=== PATIENT | male | born 1995 | race Caucasian/White ===

== ENCOUNTER 2018-11-18 20:48 | Emergency (ER) | payer OTHER ==
[2018-11-18] MEDS ORDERED: NS 0.9% 1000 ML** 1,000 ML IV ONE (21:44)
[2018-11-18 22:27] LABS: ABS Lymphocytes 1.2 10^3/ul (1.0-4.8); ABS Monocytes 0.4 10^3/ul (0-0.8); ABS Neutrophils 6.5 10^3/ul (1.5-7.7); Eosinophil % 0.1 %; Hematocrit 43 % (42-52); Hemoglobin 15.1 g/dL (14.0-18.0); Lymphocyte % 14.8 %; Mean Corpuscular HGB Conc 35 g/dL (31-36); Mean Corpuscular Hemoglobin 29 pg (27-31); Mean Corpuscular Volume 84 fL (80-94); Mean Platelet Volume 8.5 fL (7.4-10.4); Platelet Count 187 10^3/uL (150-450); Red Cell Distribution Width 14 % (10-15); White Blood Count 8.1 10^3/uL (3.5-10.8)
[2018-11-18 22:43] LABS: Albumin 5.1 g/dL (3.2-5.2); Albumin/Globulin Ratio 1.8 (1-3); BUN/Creatinine Ratio 11.7 (8-20); C Reactive Protein 17.66 mg/L (<8.01); EGFR African American 119.3 (>60); EGFR Non-African American 98.6 (>60); Globulin 2.9 g/dL (2-4); Total Bilirubin 0.8 mg/dL (0.2-1.0)
[2018-11-19] MEDS ORDERED: Potassium Chlor TAB* 20 MEQ TAB.ER PO ONE (00:16)
[2018-11-19 00:48] LABS: Magnesium 1.6 mg/dL (1.9-2.7)
[2018-11-19] MEDS ORDERED: Magnesium Sulfate 2 GM IV* 2 GM/50 ML BAG IVPB ONE (00:51)
[2018-11-19 00:52] LABS: Urine Appearance Clear; Urine Bilirubin Negative (Negative); Urine Blood Negative (Negative); Urine Color Straw; Urine Glucose Negative (Negative); Urine Ketones Negative (Negative); Urine Nitrite Negative (Negative); Urine Protein Negative (Negative); Urine Specific Gravity 1.005 (1.010-1.030); Urine Urobilinogen Negative (Negative)
--- NOTE | 2018-11-19 01:27 | ED ---
Complex/Multi-Sys Presentation - HPI Summary HPI Summary: Patient complains of headache, chills, sinus pain, numbness and tingling in all extremities starting today. Patient was sent from urgent care to the ED for further evaluation. Fever of 100.5 at urgent care which resolved with 400 mg ibuprofen. Headache also resolved with ibuprofen. Denies trauma, cough, sore throat, nasal discharge, ear pain, neck stiffness, CP, SOB, N/V/D, abdominal pain, change in urine, change in BM. Medical history is occasional headache. - History Of Current Complaint Chief Complaint: EDFever Time Seen by Provider: 11/18/18 21:28 Hx Obtained From: Patient Onset/Duration: Sudden Onset Timing: Intermittent, Lasting: Severity Currently: Mild Severity Initially: Mild Character: Typical Headache Associated Signs And Symptoms: Positive: Headache, Fever - Allergies/Home Medications Allergies/Adverse Reactions: Allergies Allergy/AdvReac Type Severity Reaction Status Date / Time No Known Allergies Allergy Verified 11/18/18 21:07 Home Medications: Home Medications Fluticasone NASAL SPRAY 50MCG* [Flonase NASAL SPRAY 50MCG*] 2 spray BOTH NARES DAILY 11/18/18 [History Confirmed 11/18/18] PMH/Surg Hx/FS Hx/Imm Hx Endocrine/Hematology History: Denies: Hx Anticoagulant Therapy Cardiovascular History: Denies: Hx Pacemaker/ICD History: Denies: Hx Dialysis Sensory History: Denies: Hx Eye Prosthesis Opthamlomology History: Denies: Hx Legally Blind EENT History: Denies: Hx Deafness Neurological History: Denies: Hx Dementia Psychiatric History: Denies: Hx Autism Infectious Disease History: No Infectious Disease History: Denies: Traveled Outside the [place] in Last 30 Days - Family History Known Family History: Positive: Non-Contributory - Social History Alcohol Use: Occasionally Substance Use Type: Reports: None Smoking Status (MU): Never Smoked Tobacco Review of Systems Positive: Fever Eyes: Negative ENT: Negative Cardiovascular: Negative Respiratory: Negative Gastrointestinal: Negative Genitourinary: Negative Musculoskeletal: Negative Skin: Negative Positive: Headache, Paresthesia Psychological: Normal All Other Systems Reviewed And Are Negative: Yes Physical Exam - Summary Physical Exam Summary: Neuro exam normal. ENT exam unremarkable. No active symptoms at this time. Triage Information Reviewed: Yes Vital Signs On Initial Exam: Initial Vitals Temp Pulse Resp BP Pulse Ox 99.3 F 103 16 129/93 97 11/18/18 21:05 11/18/18 21:05 11/18/18 21:05 11/18/18 21:05 11/18/18 21:05 Vital Signs Reviewed: Yes Appearance: Positive: Well-Appearing Skin: Positive: Warm Head/Face: Positive: Normal Head/Face Inspection Eyes: Positive: Normal ENT: Positive: Normal ENT inspection Neck: Positive: Supple Respiratory/Lung Sounds: Positive: Clear to Auscultation Cardiovascular: Positive: Normal Abdomen Description: Positive: Nontender Musculoskeletal: Positive: Normal Neurological: Positive: Normal Psychiatric: Positive: Normal AVPU Assessment: Alert - [place] Coma Scale Best Eye Response: 4 - Spontaneous Best Motor Response: 6 - Obeys Commands Best Verbal Response: 5 - Oriented Coma Scale Total: 15 Diagnostics - Vital Signs Vital Signs Temp Pulse Resp BP Pulse Ox 11/19/18 00:12 91 16 136/80 100 11/19/18 00:00 96 16 98 11/18/18 23:45 88 16 99 11/18/18 23:42 88 19 140/79 99 11/18/18 23:39 91 14 135/76 100 11/18/18 23:13 88 15 132/80 99 11/18/18 23:00 95 16 100 11/18/18 22:42 86 19 137/81 100 11/18/18 22:14 88 18 133/84 99 11/18/18 22:01 91 17 92 11/18/18 21:43 93 16 130/78 100 11/18/18 21:40 94 20 100 11/18/18 21:05 99.3 F 103 16 129/93 97 - Laboratory Lab Results: Lab Results 11/18/18 11/18/18 11/18/18 Range/Units 22:14 22:14 22:14 WBC 8.1 (3.5-10.8) 10^3/uL RBC 5.20 (4.18-5.48) 10^6 /uL Hgb 15.1 (14.0-18.0) g/dL Hct 43 (42-52) % MCV 84 (80-94) fL MCH 29 (27-31) pg MCHC 35 (31-36) g/dL RDW 14 (10-15) % Plt Count 187 (150-450) 10^3/uL MPV 8.5 (7.4-10.4) fL Neut % (Auto) 79.7 % Lymph % (Auto) 14.8 % Bland % (Auto) 5.0 % Eos % (Auto) 0.1 % Baso % (Auto) 0.4 % Absolute Neuts (auto) 6.5 (1.5-7.7) 10^3/ul Absolute Lymphs (auto) 1.2 (1.0-4.8) 10^3/ul Absolute Monos (auto) 0.4 (0-0.8) 10^3/ul Absolute Eos (auto) 0.0 (0-0.6) 10^3/ul Absolute Basos (auto) 0.0 (0-0.2) 10^3/ul Absolute Nucleated RBC 0.0 10^3/ul Nucleated RBC % 0.0 Sodium 136 (135-145) mmol/L Potassium 3.0 L (3.5-5.0) mmol/L Chloride 101 (101-111) mmol/L Carbon Dioxide 24 (22-32) mmol/L Anion Gap 11 (2-11) mmol/L BUN 11 (6-24) mg/dL Creatinine 0.94 (0.67-1.17) mg/dL Est GFR ( Amer) 119.3 (>60) Est GFR (Non-Af Amer) 98.6 (>60) BUN/Creatinine Ratio 11.7 (8-20) Glucose 99 (70-100) mg/dL Lactic Acid 1.5 (0.5-2.0) mmol/L Calcium 10.0 (8.6-10.3) mg/dL Magnesium 1.6 L (1.9-2.7) mg/dL Total Bilirubin 0.80 (0.2-1.0) mg/dL AST 23 (13-39) U/L ALT 33 (7-52) U/L Alkaline Phosphatase 73 (34-104) U/L C-Reactive Protein 17.66 H (<8.01) mg/L Total Protein 8.0 (6.4-8.9) g/dL Albumin 5.1 (3.2-5.2) g/dL Globulin 2.9 (2-4) g/dL Albumin/Globulin Ratio 1.8 (1-3) Urine Color Urine Appearance Urine pH (5-9) Ur Specific [place] (1.010-1.030) Urine Protein (Negative) Urine Ketones (Negative) Urine Blood (Negative) Urine Nitrate (Negative) Urine Bilirubin (Negative) Urine Urobilinogen (Negative) Ur Leukocyte Esterase (Negative) Urine Glucose (Negative) 11/19/18 Range/Units 00:00 WBC (3.5-10.8) 10^3/uL RBC (4.18-5.48) 10^6 /uL Hgb (14.0-18.0) g/dL Hct (42-52) % MCV (80-94) fL MCH (27-31) pg MCHC (31-36) g/dL RDW (10-15) % Plt Count (150-450) 10^3/uL MPV (7.4-10.4) fL Neut % (Auto) % Lymph % (Auto) % Bland % (Auto) % Eos % (Auto) % Baso % (Auto) % Absolute Neuts (auto) (1.5-7.7) 10^3/ul Absolute Lymphs (auto) (1.0-4.8) 10^3/ul Absolute Monos (auto) (0-0.8) 10^3/ul Absolute Eos (auto) (0-0.6) 10^3/ul Absolute Basos (auto) (0-0.2) 10^3/ul Absolute Nucleated RBC 10^3/ul Nucleated RBC % Sodium (135-145) mmol/L Potassium (3.5-5.0) mmol/L Chloride (101-111) mmol/L Carbon Dioxide (22-32) mmol/L Anion Gap (2-11) mmol/L BUN (6-24) mg/dL Creatinine (0.67-1.17) mg/dL Est GFR ( Amer) (>60) Est GFR (Non-Af Amer) (>60) BUN/Creatinine Ratio (8-20) Glucose (70-100) mg/dL Lactic Acid (0.5-2.0) mmol/L Calcium (8.6-10.3) mg/dL Magnesium (1.9-2.7) mg/dL Total Bilirubin (0.2-1.0) mg/dL AST (13-39) U/L ALT (7-52) U/L Alkaline Phosphatase (34-104) U/L C-Reactive Protein (<8.01) mg/L Total Protein (6.4-8.9) g/dL Albumin (3.2-5.2) g/dL Globulin (2-4) g/dL Albumin/Globulin Ratio (1-3) Urine Color Straw Urine Appearance Clear Urine pH 8.0 (5-9) Ur Specific [place] 1.005 L (1.010-1.030) Urine Protein Negative (Negative) Urine Ketones Negative (Negative) Urine Blood Negative (Negative) Urine Nitrate Negative (Negative) Urine Bilirubin Negative (Negative) Urine Urobilinogen Negative (Negative) Ur Leukocyte Esterase Negative (Negative) Urine Glucose Negative (Negative) Result Diagrams: 11/18/18 22:14 11/18/18 22:14 Lab Statement: Any lab studies that have been ordered have been reviewed, and results considered in the medical decision making process. Complex Multi-Symp Course/Dx Course Of Treatment: Patient complains of headache, chills, sinus pain, numbness and tingling in all extremities starting today. Patient was sent from urgent care to the ED for further evaluation. Fever of 100.5 at urgent care which resolved with 400 mg ibuprofen. Headache also resolved with ibuprofen. Denies trauma, cough, sore throat, nasal discharge, ear pain, neck stiffness, CP , SOB, N/V/D, abdominal pain, change in urine, change in BM. Medical history is occasional headache. Physical exam:Neuro exam normal. ENT exam unremarkable. No active symptoms at this time. Vital signs within normal limits. Potassium 3.0. Magnesium 1.6. CRP 17. Patient given 40 mEq potassium by mouth. Magnesium 2 mg IV. 1 L normal saline. Labs otherwise unremarkable. - Diagnoses Provider Diagnoses: Numbness and tingling, Hypokalemia, Hypomagnesemia, Viral syndrome Discharge - Sign-Out/Discharge Documenting (check all that apply): Patient Departure Patient Received Moderate/Deep Sedation with Procedure: No - Discharge Plan Condition: Stable Disposition: HOME Patient Education Materials: Hypokalemia (ED), Viral Syndrome (ED), Hypomagnesemia (ED) Referrals: [facility] - Nilesh CRUZ [Primary Care Provider] - Additional Instructions: Follow-up with [facility] for further evaluation and monitoring of low potassium and magnesium. Drink plenty of fluids to maintain hydration. Alternate ibuprofen and Tylenol every 3 hours for control of fever. Return to the ED for any new or worsening symptoms. - Billing Disposition and Condition Condition: STABLE Disposition: Home
[2018-11-19 01:56] VITALS: BP 135/81
== END 2018-11-19 01:56 | disposition home or self-care (01) ==
LOC: ED 20:48
DX: R20.0 Anesthesia of skin (principal); R20.2 Paresthesia of skin; E87.6 Hypokalemia; E83.42 Hypomagnesemia; B34.9 Viral infection, unspecified
CPT/HCPCS: 36415; 80053; 81003; 83605; 83735; 85025; 86140; 87040; 93005; 96361; 96365; 99284; A9270-GY; J3475

== ENCOUNTER 2019-02-17 13:26 | Emergency (ER) | payer OTHER ==
[2019-02-17 16:56] VITALS: BP 142/88
--- NOTE | 2019-02-17 17:20 | ED ---
Head Injury - HPI Summary HPI Summary: Patient is a 23-year-old male who presents emergency department for evaluation of head injury that occurred 3 days ago. Patient states that him and his friends were walking across a street when he accidentally tripped, fell and struck the left side of his forehead on the pavement. There is no loss of consciousness. Patient states he had minimal pain after incident. Patient states the following day he developed a headache. He was seen at an outside urgent care and diagnosed with a concussion. Patient states headache is persistent as well as difficulty focusing when reading. Symptoms are mild in severity. No current modifying factors. - History Of Current Complaint Chief Complaint: EDHeadInjury Stated Complaint: HEAD INJURY PER PT Time Seen by Provider: 02/17/19 14:59 Hx Obtained From: Patient Pain Intensity: 0 Pain Scale Used: 0-10 Numeric - Allergies/Home Medications Allergies/Adverse Reactions: Allergies Allergy/AdvReac Type Severity Reaction Status Date / Time No Known Allergies Allergy Verified 11/18/18 21:07 PMH/Surg Hx/FS Hx/Imm Hx Previously Healthy: Yes Endocrine/Hematology History: Denies: Hx Anticoagulant Therapy Cardiovascular History: Denies: Hx Pacemaker/ICD History: Denies: Hx Dialysis Sensory History: Denies: Hx Eye Prosthesis, Hx Legally Blind, Hx Deafness Opthamlomology History: Denies: Hx Eye Prosthesis, Hx Legally Blind Neurological History: Denies: Hx Dementia Psychiatric History: Denies: Hx Autism Infectious Disease History: No Infectious Disease History: Denies: Traveled Outside the [place] in Last 30 Days - Family History Known Family History: Positive: Non-Contributory - Social History Occupation: Student Lives: With Family Alcohol Use: Occasionally Substance Use Type: Reports: Marijuana Smoking Status (MU): Never Smoked Tobacco Review of Systems Eyes: Negative ENT: Negative Cardiovascular: Negative Respiratory: Negative Gastrointestinal: Negative Negative: Vomiting Musculoskeletal: Negative Positive: Bruising Positive: Headache. Negative: Weakness, Paresthesia, Numbness, Syncope All Other Systems Reviewed And Are Negative: Yes Physical Exam Triage Information Reviewed: Yes Vital Signs On Initial Exam: Initial Vitals Temp Pulse Resp BP Pulse Ox 98.7 F 78 16 150/96 99 02/17/19 13:30 02/17/19 13:30 02/17/19 13:30 02/17/19 13:30 02/17/19 13:30 Vital Signs Reviewed: Yes Appearance: Positive: Well-Appearing - Pt. sitting in chair in NAD. Skin: Positive: Warm, Dry Head/Face: Positive: Other - Superficial abrasion to left forehead region. No palpable skull deformity. No racoon eyes or coles sign. Eyes: Positive: Normal, EOMI, DANA, Conjunctiva Clear ENT: Positive: TMs normal - No hemotympanum bilaterally. Neck: Positive: Supple, Nontender - No midline tenderness. Musculoskeletal: Positive: Normal, Strength/ROM Intact Neurological: Positive: Normal, Alert, Oriented to Person Place, Time, CN Intact II-III, Normal Gait, Finger to Nose - normal, Facial Symmetry, Speech Normal. Negative: Pronator Drift Present Psychiatric: Positive: Affect/Mood Appropriate Diagnostics - Vital Signs Vital Signs Temp Pulse Resp BP Pulse Ox 02/17/19 16:55 98.6 F 72 16 142/88 99 02/17/19 13:30 98.7 F 78 16 150/96 99 - Laboratory Lab Statement: Any lab studies that have been ordered have been reviewed, and results considered in the medical decision making process. Head Injury Course/Dx Course Of Treatment: Patient presenting for evaluation of head injury that occurred 3 days ago. No neurological deficits. His exam and symptoms are consistent with a concussion. Discussed risks versus benefits of obtaining CT scan at this point in time and patient agrees with no imaging today. Will have patient follow up with [facility] for reevaluation and to discuss participation in classes and school work. Advised patient to avoid reading, cell phone, TV screens, computer screens. Ice forehead intermittently. Patient return to the ear symptoms change or worsen. Patient understands and agrees with plan. - Diagnoses Differential Diagnosis/HQI/PQRI: Cerebral Contusion, Concussion Without LOC, Hematoma Provider Diagnoses: Post concussion syndrome, Head injury Discharge ED - Sign-Out/Discharge Documenting (check all that apply): Patient Departure Patient Received Moderate/Deep Sedation with Procedure: No - Discharge Plan Condition: Good Disposition: HOME Patient Education Materials: Concussion (ED), Post Concussion Syndrome (ED) Referrals: [facility] - Nilesh CRUZ [Primary Care Provider] - Additional Instructions: Call [facility] tomorrow to schedule a close follow up appointment Can rotate between Tylenol and Motrin as directed for pain as control Ice head intermittently Avoid reading, cellphone/computer/TV screens Return to ER if symptoms change or worsen - Billing Disposition and Condition Condition: GOOD Disposition: Home
== END 2019-02-17 16:30 | disposition home or self-care (01) ==
LOC: ED 13:26
DX: F07.81 Postconcussional syndrome (principal); S09.90XA Unspecified injury of head, initial encounter; W01.198A Fall on same level from slipping, tripping and stumbling with subsequent striking against other object, initial encounter; Y92.410 Unspecified street and highway as the place of occurrence of the external cause
CPT/HCPCS: 99282